=== PATIENT | male | born 1975 | race African-American/Black ===

== ENCOUNTER 2019-11-15 18:41 | Emergency (ER) | payer SELFPAY, OTHER ==
[~2019-11-15] VITALS: Ht 182.9 cm; Wt 90.7 kg
--- NOTE | 2019-11-15 18:35 | Emergency Room Report ---
History of Present Illness General Chief Complaint: Medical Clearance Source: EMS Present Illness HPI 44-year-old male with no known past medical history brought in by [employer] for medical clearance. Patient is complaining of a bleeding laceration left upper forehead and an abrasion on right knee. According to [employer] patient has been combative afebrile resting patient accidentally right forehead after he had already however denies any (, dizziness, blurry vision at this time. Patient combative use derogatory language. Up-to-date with tetanus shot. Denies chest pain, shortness of breath, cough and congestion at this time. Allergies: Coded Allergies: No Known Allergies (Unverified , 11/15/19) COVID-19 Screening Contact w/high risk pt: No Recent Travel to affected area: No Experienced COVID-19 symptoms?: No Patient History Past Medical History: see triage record Past Surgical History: unable to obtain Pertinent Family History: unable to obtain Immunizations: UTD Reviewed Nursing Documentation: PMH: Agreed; PSxH: Agreed Nursing Documentation-PMH Past Medical History: No History, Except For History Of Psychiatric Problem: Yes - depression Review of Systems All Other Systems: negative except mentioned in HPI Physical Exam Vital Signs Date Time Temp Pulse Resp B/P (MAP) Pulse Ox O2 Delivery O2 Flow Rate FiO2 11/15/19 18:26 100 20 149/100 (116) 99 Room Air Sp02 EP Interpretation: reviewed, normal General Appearance: no apparent distress, alert, GCS 15, non-toxic Head: normocephalic, atraumatic ENT: hearing grossly normal, normal pharynx, no angioedema, normal voice Neck: full range of motion, supple/symm/no masses Respiratory: chest non-tender, lungs clear, normal breath sounds, no rhonchi, speaking full sentences Cardiovascular #1: regular rate, rhythm, no edema Gastrointestinal: non tender, soft Genitourinary: no CVA tenderness Musculoskeletal: back normal Neurologic: alert, motor strength/tone normal, oriented x3, sensory intact, responsive, speech normal Psychiatric: judgement/insight normal, memory normal, mood/affect normal, no suicidal/homicidal ideation Skin: laceration - Left forehead, superficial, abrasion - Right knee Lymphatic: no adenopathy Procedures Laceration/Wound Repair Laceration/Wound Repair : Consent: Verbal Wound Location: face - Left mid forehead Wound's Depth, Shape: superficial Wound Length (cm): 1 Wound Explored: no foreign body removed Wound Repaired With: Steri-strips, Dermabond Sterile Dressing Applied?: Yes Splint Applied?: No Sling Applied?: No Patient Tolerated: Well Complications: None Medical Decision Making PA Attestation All my diagnosis and treatment plans were reviewed ad discussed with my supervising physician Dr. Rachel Diagnostic Impression: Primary Impression: Laceration of forehead Additional Impressions: Abrasion, knee Medical clearance for incarceration ER Course 44-year-old male with no known past medical history brought in by [employer] for medical clearance. Patient is complaining of a bleeding laceration left upper forehead and an abrasion on right knee. According to [employer] patient has been combative afebrile resting patient accidentally right forehead after he had already however denies any (, dizziness, blurry vision at this time. Patient combative use derogatory language. Up-to-date with tetanus shot. Denies chest pain, shortness of breath, cough and congestion at this time. Ddx considered but are not limited to : Superficial laceration, deep laceration , tendon involvement with laceration, laceration with foreign body Vital signs: are WNL, pt. is afebrile H&PE are most consistent with: Superficial laceration of forehead, abrasion, medical clearance for incarceration ORDERS: Mupirocin ointment, Tylenol ED INTERVENTIONS: Wound closure, wound clean and dressed DISCHARGE: At this time pt. is stable for d/c to home. Will provide printed patient care instructions, and any necessary prescriptions. Care plan and follow up instructions have been discussed with the patient prior to discharge. At this time no head CT scan was needed patient did not lose consciousness, and head appears to be atraumatic other than superficial lacerations. Also patient did not lose consciousness, denies any headache and dizziness at this time. Advised patient to follow primary doctor. If worsening symptoms return to emergency room Last Vital Signs Date Time Temp Pulse Resp B/P (MAP) Pulse Ox O2 Delivery O2 Flow Rate FiO2 11/15/19 18:26 100 20 149/100 (116) 99 Room Air Disposition: [facility] ENFORCEMENT IN [facility] Condition: Stable Scripts Acetaminophen* (TYLENOL EXTRA STRENGTH*) 500 Mg Tablet 500 MG ORAL Q8H PRN for Prn Headache/Temp > 101, #30 TAB 0 Refills Prov: Prince Dias 11/15/19 Mupirocin* (MUPIROCIN*) 22 Gm Oint...g. 1 APPLIC TOPIC THREE TIMES A DAY, #22 GM Prov: Prince Dias 11/15/19 Patient Instructions: Abrasion, [id number], Facial Laceration, [id number] Prince Dias Nov 15, 2019 18:35
[2019-11-15 18:41] VITALS: BP 149/100
[~2019-11-15 18:41] MED LIST: MUPIROCIN22 GM TOPIC; TYLENOL EXTRA500 MG ORAL
== END 2019-11-15 19:00 ==
LOC: EDBD 18:41 → EMR 18:45
DX: S01.81XA Laceration without foreign body of other part of head, initial encounter (principal); S80.211A Abrasion, right knee, initial encounter; X58.XXXA Exposure to other specified factors, initial encounter; Y92.9 Unspecified place or not applicable; F32.9 Major depressive disorder, single episode, unspecified
CPT/HCPCS: 99283

== ENCOUNTER 2020-02-02 18:06 | Emergency (ER) | payer MEDICAID, OTHER, SELFPAY ==
[~2020-02-02] VITALS: Ht 175.3 cm; Wt 81.6 kg
--- NOTE | 2020-02-02 18:23 | Emergency Room Report ---
History of Present Illness General Chief Complaint: Behavioral Complaint Source: EMS (Jacklyn Funes N. P.A.) Present Illness HPI 44-year-old male with history of schizophrenia and bipolar disorder, noncompliant, brought in by paramedics for throwing himself in front of traffic in an attempt of suicide. He reports that he "wants to get hit by a car and ". Per paramedics, patient was discharged from [facility] this morning and is now on a 5150 hold. Patient reports he has attempted suicide many times in the past. He admits to alcohol and meth use. Denies any injuries. (Jacklyn Funes N. P.A.) Allergies: Coded Allergies: No Known Allergies (Unverified , 11/15/19) COVID-19 Screening Contact w/high risk pt: No Recent Travel to affected area: No Experienced COVID-19 symptoms?: No COVID-19 Testing performed LOG OPERATIONS COORDINATOR: No (Jacklyn Funes N. P.A.) Patient History Past Medical History: see triage record Reviewed Nursing Documentation: PMH: Agreed; PSxH: Agreed (Jacklyn Funes N. P.A.) Nursing Documentation-PMH Past Medical History: No History, Except For (Jacklyn Funes N. P.A.) Review of Systems All Other Systems: negative except mentioned in HPI (Jacklyn Funes N. P.A.) Physical Exam Vital Signs Date Time Temp Pulse Resp B/P (MAP) Pulse Ox O2 Delivery O2 Flow Rate FiO2 02/02/20 18:00 98.4 94 18 170/100 (123) 97 Room Air Sp02 EP Interpretation: reviewed, normal General Appearance: alert, non-toxic Head: normocephalic, atraumatic Eyes: bilateral eye normal inspection, bilateral eye EOMI ENT: hearing grossly normal, normal voice Neck: normal inspection, supple Respiratory: normal inspection Musculoskeletal: normal range of motion Neurologic: alert, oriented Psychiatric: other - Patient aggresive, disorganized thought process. Skin: normal color (Jacklyn Funes N. P.A.) Medical Decision Making PA Attestation Dr. Nuñez is my supervising physician whom patient management and care has been discussed with. (Jacklyn Funes N. P.A.) Diagnostic Impression: Primary Impression: Suicidal behavior with attempted self-injury ER Course Pt. with history of schizophrenia and bipolar disorder, noncompliant with medications, presents to the ED with suicidal ideation and attempt. Patient tried to run into traffic and get hit by cars. Patient on 5150 hold. Admits to alcohol and meth use. Ddx considered but are not limited to suicide attempt, schizophrenia, bipolar. Vital signs: are WNL, pt. is afebrile H&PE are most consistent with suicide attempt. ORDERS: Basic labs and drug screen ordered. ED INTERVENTIONS: Given 1 mg PO Ativan and 10 mg Zyprexa. DISPOSITION: Pending transfer to psych facility. Laboratory Tests Test 02/02/20 18:30 02/02/20 18:35 White Blood Count 7.0 K/UL (4.8-10.8) Red Blood Count 4.70 M/UL (4.70-6.10) Hemoglobin 13.9 G/DL (14.2-18.0) L Hematocrit 43.2 % (42.0-52.0) Mean Corpuscular Volume 92 FL (80-99) Mean Corpuscular Hemoglobin 29.6 PG (27.0-31.0) Mean Corpuscular Hemoglobin Concent 32.2 G/DL (32.0-36.0) Red Cell Distribution Width 13.3 % (11.6-14.8) Platelet Count 231 K/UL (150-450) Mean Platelet Volume 8.3 FL (6.5-10.1) Neutrophils (%) (Auto) 73.1 % (45.0-75.0) Lymphocytes (%) (Auto) 18.4 % (20.0-45.0) L Monocytes (%) (Auto) 6.3 % (1.0-10.0) Eosinophils (%) (Auto) 0.7 % (0.0-3.0) Basophils (%) (Auto) 1.4 % (0.0-2.0) Sodium Level 141 MMOL/L (136-145) Potassium Level 4.1 MMOL/L (3.5-5.1) Chloride Level 104 MMOL/L (98-107) Carbon Dioxide Level 25 MMOL/L (21-32) Anion Gap 12 mmol/L (5-15) Blood Urea Nitrogen 13 mg/dL (7-18) Creatinine 1.1 MG/DL (0.55-1.30) Estimated Glomerular Filtration Rate > 60 mL/min (>60) Glucose Level 111 MG/DL (74-106) H Calcium Level 8.5 MG/DL (8.5-10.1) Total Bilirubin 0.4 MG/DL (0.2-1.0) Aspartate Amino Transferase (AST) 24 U/L (15-37) Alanine Aminotransferase (ALT) 33 U/L (12-78) Alkaline Phosphatase 58 U/L (46-116) Total Protein 7.6 G/DL (6.4-8.2) Albumin 4.2 G/DL (3.4-5.0) Globulin 3.4 g/dL Albumin/Globulin Ratio 1.2 (1.0-2.7) Salicylates Level 1.4 ug/mL (2.8-20) L Acetaminophen Level < 2 MCG/ML (10-30) L Serum Alcohol 169 mg/dL Urine Opiates Screen Pending Urine Barbiturates Screen Pending Phencyclidine (PCP) Screen Pending Urine Amphetamines Screen Pending Urine Benzodiazepines Screen Pending Urine Cocaine Screen Pending Urine Marijuana (THC) Screen Pending (Jacklyn Funes N. P.A.) ER Course This patient is medically cleared for inpatient psychiatric care. (Jennie Martin DO) Last Vital Signs Date Time Temp Pulse Resp B/P (MAP) Pulse Ox O2 Delivery O2 Flow Rate FiO2 02/02/20 18:00 98.4 94 18 170/100 (123) 97 Room Air (Jacklyn Funes N. P.A.) Disposition: PSYCH HOSP/UNIT Condition: Stable Jacklyn Funes N. P.AJael Feb 02, 2020 18:23 Jennie Martin DO Feb 02, 2020 21:57
[2020-02-02 18:43] VITALS: BP 115/64
[2020-02-02 18:50] LABS: ANION GAP 12 mmol/L (5-15); BLOOD UREA NITROGEN 13 mg/dL (7-18); CALCIUM 8.5 MG/DL (8.5-10.1); CARBON DIOXIDE 25 MMOL/L (21-32); CHLORIDE 104 MMOL/L (98-107); CREATININE 1.1 MG/DL (0.55-1.30); POTASSIUM 4.1 MMOL/L (3.5-5.1); SODIUM 141 MMOL/L (136-145)
[2020-02-02 18:51] LABS: BASOPHILS % (AUTO) 1.4 % (0.0-2.0); EOSINOPHILS % (AUTO) 0.7 % (0.0-3.0); HEMATOCRIT 43.2 % (42.0-52.0); HEMOGLOBIN 13.9 G/DL (14.2-18.0); LYMPHOCYTES % (AUTO) 18.4 % (20.0-45.0); MEAN CORPUSCULAR VOLUME 92 FL (80-99); MONOCYTES % (AUTO) 6.3 % (1.0-10.0); NEUTROPHILS % (AUTO) 73.1 % (45.0-75.0); PLATELET COUNT 231 K/UL (150-450); RED CELL DISTRIBUTION WIDTH 13.3 % (11.6-14.8)
[2020-02-02 18:55] LABS: ALANINE AMINOTRANSFERASE 33 U/L (12-78); ALBUMIN 4.2 G/DL (3.4-5.0); ALBUMIN/GLOBULIN RATIO 1.2 (1.0-2.7); ALKALINE PHOSPHATASE 58 U/L (46-116); ASPARTATE AMINO TRANSFERASE 24 U/L (15-37); BILIRUBIN,TOTAL 0.4 MG/DL (0.2-1.0)
[2020-02-02] MEDS ORDERED: LORazepam 1mg tab ORAL ONE (19:00)
[2020-02-02] MEDS ORDERED: ZyPREXA Zydis 10mg tab ORAL ONE (19:00)
[2020-02-02 20:10] VITALS: BP 121/72
[2020-02-02 22:09] VITALS: BP 119/68
[2020-02-03] VITALS (7 sets, daily range): BP systolic 116–127; BP diastolic 64–76
[2020-02-03 10:25] LABS: APPEARANCE,URINE SLIGHTLY CLOUDY; BILIRUBIN, URINE NEGATIVE (NEGATIVE); COLOR,URINE PALE YELLOW; GLUCOSE, URINE (UA) NEGATIVE (NEGATIVE); KETONES,URINE NEGATIVE (NEGATIVE); LEUKOCYTE ESTERASE ,URINE NEGATIVE (NEGATIVE); NITRITE,URINE NEGATIVE (NEGATIVE); PH,URINE 7 (4.5-8.0); PROTEIN,URINE NEGATIVE (NEGATIVE); UROBILINOGEN,URINE NORMAL MG/DL (0.0-1.0)
== END 2020-02-03 21:03 ==
LOC: EDBD 18:06 → EMR 18:37
DX: T14.91XA Suicide attempt, initial encounter (principal); F10.10 Alcohol abuse, uncomplicated; F20.9 Schizophrenia, unspecified; F31.9 Bipolar disorder, unspecified; X83.8XXA Intentional self-harm by other specified means, initial encounter; Y93.9 Activity, unspecified; Y92.410 Unspecified street and highway as the place of occurrence of the external cause; Z91.14 Patient's other noncompliance with medication regimen; Y90.6 Blood alcohol level of 120-199 mg/100 ml
CPT/HCPCS: 36415; 80053; 80307; 81003; 85025; G0480; G0481; U0002; Z7502; 99285